=== PATIENT | male | born 1970 | race Caucasian/White ===

== ENCOUNTER 2016-11-21 12:57 | Day surgery (SDC) | payer OTHER ==
[2016-11-19 16:37] LABS: ASPARTATE AMINO TRANSFERASE 26 U/L (15-37); BLOOD UREA NITROGEN 18 mg/dL (7-18)
[~2016-11-21] VITALS: Ht 182.9 cm; Wt 93.0 kg
[~2016-11-21 12:57] MED LIST: ATOR20TA9 PO; BENA20TA2 PO; ROPIvacaine/PF 0.5%, 20 ML ONE
[2016-11-21 13:25] VITALS: BP 155/95
[2016-11-21] MEDS ORDERED: LACTATED RINGERS 1,000 ML IV SCH (13:40)
[2016-11-21] MEDS ORDERED: FENTANYL PF 100 MCG/2ML ONE ×3 (14:47→16:26)
[2016-11-21] MEDS ORDERED: ROPIvacaine/PF 0.5%, 20 ML ONE (15:33)
[2016-11-21] MEDS ORDERED: OXYcodone 5 MG/5 ML ORAL.SOL UDC ONE ×2 (16:23)
[2016-11-21] MEDS ORDERED: ONDANSETRON 2MG/ML, 2ML IVPush PRN (16:30)
[2016-11-21] MEDS ORDERED: MIDAZOLAM 1 MG/ML, 2ML IV PRN (16:30)
[2016-11-21] MEDS ORDERED: LABETALOL 5MG/ML, 20ML IV PRN (16:30)
[2016-11-21] MEDS ORDERED: MEPERIDINE/PF 25MG/0.5ML IVPush PRN (16:30)
[2016-11-21] MEDS ORDERED: OXYcodone 5 MG/5 ML ORAL.SOL UDC PO PRN (16:30)
[2016-11-21] MEDS ORDERED: HYDROmorphone 1 MG/ML, 1ML IV PRN (16:30)
[2016-11-21] MEDS ORDERED: hydrALAzine 20 MG/ML, 1ML IV PRN (16:30)
[2016-11-21] MEDS ORDERED: PROMETHAZINE 25 MG/ML, 1ML IV PRN (16:30)
[2016-11-21] MEDS ORDERED: FENTANYL PF 100 MCG/2ML IV PRN (16:30)
[2016-11-21] MEDS ORDERED: PROPOFOL 10 MG/ML, 20ML ONE (16:37)
[2016-11-21] MEDS ORDERED: ONDANSETRON 2MG/ML, 2ML ONE (16:37)
[2016-11-21] MEDS ORDERED: DEXAMETHASONE 4 MG/ML, 1ML ONE (16:37)
[2016-11-21] MEDS ORDERED: METOCLOPRAMIDE 5 MG/ML, 2ML ONE (16:37)
[2016-11-21] MEDS ORDERED: CEFAZOLIN 1,000 MG ONE (16:37)
== END 2016-11-21 18:05 ==
LOC: OUT 12:57
PROVIDERS: ATTEND Plastic Surgery
DX: S66.121A Laceration of flexor muscle, fascia and tendon of left index finger at wrist and hand level, initial encounter (principal); S64.490A Injury of digital nerve of right index finger, initial encounter; X58.XXXA Exposure to other specified factors, initial encounter; Y93.9 Activity, unspecified; Y92.9 Unspecified place or not applicable; Y99.9 Unspecified external cause status; E78.00 Pure hypercholesterolemia, unspecified; I10 Essential (primary) hypertension
CPT/HCPCS: 26350; 26356; 36415; 64721; 64831; 64834; 80053; 85014; 85018; J0690; J1100; J2405; J2704; J2765; J2795; J3010; J7120

== ENCOUNTER 2016-11-23 11:17 | Observation (INO) | payer OTHER ==
[~2016-11-23] VITALS: Ht 185.4 cm; Wt 91.0 kg
[~2016-11-23 11:17] MED LIST changes: -ROPIvacaine/PF 0.5%, 20 ML ONE
[2016-11-23] MEDS ORDERED: ROPIvacaine/PF 0.5%, 20 ML ONE (14:46)
[2016-11-23] MEDS ORDERED: FENTANYL PF 250 MCG/5ML ONE (14:58)
[2016-11-23] MEDS ORDERED: MIDAZOLAM 1 MG/ML, 2ML ONE (14:58)
[2016-11-23] MEDS ORDERED: DEXAMETHASONE 4 MG/ML, 1ML ONE (14:59)
[2016-11-23] MEDS ORDERED: PROPOFOL 10 MG/ML, 20ML ONE (14:59)
[2016-11-23] MEDS ORDERED: ONDANSETRON 2MG/ML, 2ML ONE (14:59)
[2016-11-23] MEDS ORDERED: CEFAZOLIN 1,000 MG ONE (14:59)
[2016-11-23] MEDS ORDERED: KETOROLAC 30 MG/1 ML ONE (14:59)
[2016-11-23] MEDS ORDERED: ROPIvacaine/PF 0.5%, 20 ML INFIL ONE (15:18)
[2016-11-23] MEDS ORDERED: ONDANSETRON 2MG/ML, 2ML IVPush PRN (16:00)
[2016-11-23] MEDS ORDERED: MIDAZOLAM 1 MG/ML, 2ML IV PRN (16:00)
[2016-11-23] MEDS ORDERED: FENTANYL PF 100 MCG/2ML IV PRN (16:00)
[2016-11-23] MEDS ORDERED: METOCLOPRAMIDE 5 MG/ML, 2ML IV PRN (16:00)
[2016-11-23] MEDS ORDERED: MEPERIDINE/PF 25MG/0.5ML IVPush PRN (16:00)
[2016-11-23] MEDS ORDERED: HYDROmorphone 1 MG/ML, 1ML IV PRN (16:00)
[2016-11-23] MEDS ORDERED: hydrALAzine 20 MG/ML, 1ML IV PRN (16:00)
[2016-11-23] MEDS ORDERED: ACETAMINOPHEN 325 MG TABLET PO PRN (16:00)
[2016-11-23] MEDS ORDERED: ALBUTEROL/IPRATROPIUM 2.5MG/0.5MG, 3 ML NPPB PRN (16:00)
[2016-11-23] MEDS ORDERED: PROMETHAZINE 25 MG/ML, 1ML IV PRN (16:00)
[2016-11-23] MEDS ORDERED: LABETALOL 5MG/ML, 20ML IV PRN (16:00)
[2016-11-23] MEDS ORDERED: OXYcodone 5 MG/5 ML ORAL.SOL UDC PO PRN (16:00)
[2016-11-23] MEDS ORDERED: OXYcodone 5 MG/5 ML ORAL.SOL UDC ONE (16:05)
[2016-11-23] MEDS ORDERED: MEPERIDINE/PF 25MG/0.5ML ONE (16:13)
[2016-11-23] MEDS ORDERED: OXYcodone IR 5MG TABLET PO PRN (17:30)
[2016-11-23 18:15] VITALS: BP 126/79
== END 2016-11-23 18:15 | disposition home or self-care (01) ==
LOC: ED 11:21 → EDIP 11:27 → 4NOR 16:58
PROVIDERS: ADMIT Plastic Surgery; ATTEND Plastic Surgery
DX: T81.89XA Other complications of procedures, not elsewhere classified, initial encounter (principal); R20.0 Anesthesia of skin; R20.2 Paresthesia of skin; I10 Essential (primary) hypertension; E78.00 Pure hypercholesterolemia, unspecified; Y83.8 Other surgical procedures as the cause of abnormal reaction of the patient, or of later complication, without mention of misadventure at the time of the procedure; Y92.89 Other specified places as the place of occurrence of the external cause
CPT/HCPCS: 64702; 64721; G0378; J0690; J1100; J1885; J2250; J2405; J2704; J2795; J3010